=== PATIENT | female | born 1995 | race Caucasian/White ===

== ENCOUNTER 2022-06-21 21:44 | Emergency (ER) | payer OTHER ==
--- OUTSIDE RECORDS SUMMARY | 2022-06-21 21:49 | XMS REPORT | Continuity of Care Document ---
:1995 Author Organization [facility] t Address [address] [place] [address] Dr. Ross [address] [place] [address] Care Team Providers Name Role Phone FRANCESCA FIGUEROA Primary Care Physician Unavailable OTONIEL MILES Attending Clinician Unavailable Otoniel Miles MD Attending Clinician Doctor Unassigned, [place] Attending Clinician Unavailable Jeni Jackson PA-C Attending Clinician JENI JACKSON Attending Clinician Unavailable Bartolo Mota MD Attending Clinician Only, Adc Test Attending Clinician Unavailable YAKOV MCCALL Attending Clinician Unavailable Ultrasound, Sug-Mfm Attending Clinician Unavailable Yakov Mccall MD Attending Clinician 2, Adc Lab Attending Clinician Unavailable FRANCESCA FIGUEROA Attending Clinician Unavailable Ultrasound, Adc Mfm Attending Clinician Unavailable Rg Flynn MD Attending Clinician Francesca Crowell Attending Clinician OTONIEL MILES Admitting Clinician Unavailable Otoniel Miles MD Admitting Clinician Payers Payer Name Policy Type Policy Number Effective Date Expiration Date Lolis CLAY SAVEJOSETTE [id number] 2021 00:00:00 [facility] [id number] 2020 CHOICE MEDICAID 00:00:00 W-[id number] 2020 00:00:00 Problems Condition Condition Condition Status Onset Resolution Last Treating Co mments Source Name Details Category Date Date Treatment Clinician Date Presence Presence Disease Active Unive rs of of 2-03 [place]y of [place] Medical contracept contracept Br anch aiden device aiden device ASCUS of ASCUS of Disease Active Unive rs cervix cervix 9-15 ity of with with 00:00: [place] negative negative 00 Medica l high risk high risk Bran ch HPV HPV 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 5-26 ity of and and 00:00: [place] depressive depressive 00 Me dical disorder disorder Branch Allergies, Adverse Reactions, Alerts Allergy Allergy Status Severity Reaction(s) Onset Inactive Treating Comm ents Source Name Type Date Date Clinician PENICILL Drug Active Rash 2019-0 Univers INS Class 9-15 ity of 00:00: [place] 00 Medical Branch SULFA Drug Active Rash 2019-0 Univers (SULFONA Class 9-15 ity of MIDE 00:00: [place] ANTIBIOT 00 Medical ICS) Branch Penicill Propensi Active Rash 0 Univer s ins ty to 9-15 ity of adverse 00:00: [place] reaction 00 Medical s Branch Sulfa Propensi Active Rash 2019-0 Univers (Sulfona ty to 9-15 ity of mide adverse 00:00: [place] Antibiot reaction 00 Medica l ics) s Branch Social History Social Habit Start Date Stop Date Quantity Comments Source Exposure to Not sure [place] of SARS-CoV-2 [place] [facility] (event) Branch Alcohol intake 2021-08-11 2021-08-11 Ex-drinker University of 00:00:00 00:00:00 (finding) [place] [facility] Tobacco use and 2020-03-23 2020-03-23 Never used Universit y of exposure 00:00:00 00:00:00 [place] [facility] History SDOH 2020-03-23 2020-03-23 2 University o f Alcohol Frequency 00:00:00 00:00:00 [place] [facility] History SDWY 2020-03-23 2020-03-23 1 University o f Alcohol Std 00:00:00 00:00:00 [place] [facility] Drinks Branch History SDWY 2020-03-23 2020-03-23 1 University o f Alcohol Binge 00:00:00 00:00:00 [place] [facility] Alcohol Comment 2020-03-23 2020-03-23 social drinker Unive rsity of 00:00:00 00:00:00 [facility] Sex Assigned At [birth year] Universit y of 00:00:00 00:00:00 [facility] Smoking Status Start Date Stop Date Source Never smoker [facility] Medications Ordered Filled Start Stop Current Ordering Indication Dosage Frequency Signature Comments Components Source Medication Medication Date Date Medication? Clinician (SIG) Name Name No known No Univers medications 3-07 ity of 10:15: [address] No known No Univers medications 3-07 ity of 10:15: [address] miSOPROStoL 2021- No [id number] Take one Univers 200 mcg 07-27 tablet ity of tablet 00:00: 00:00 night [place] 00 :00 before Medical procedure, Branch then take one tablet morning of procedure 2020-07- No [id number] 1{tbl} Take 1 Univers vitamin 08-16 tablet by ity of w/FA tablet 00:00: 00[place] :00 daily. Medical Branch docusate 2020-07- No [id number] 240mg Take 1 Univers calcium 240 08-16 capsule by i ty of mg capsule 00:00: 00:00 mouth once [place] 00 :00 daily as Medical needed for Branch Constipati on. ferrous 2020-07- No [id number] 325mg Take 1 U nivers sulfate 325 08-16 tablet by it y of mg (65 mg 00:00: 00:00 mouth [place] iron) 00 :00 (two) Medical tablet times Branch daily. ibuprofen 2020-07- No [id number] 600mg Take 1 Univers 600 mg 08-16 tablet by ity of tablet 00:00: 00:00 mouth [place] 00 :00 every 6 Medical (six) Branch hours as needed (Pain). Take with food or milk. Immunizations Ordered Filled Immunization Date Status Comments Sour e Immunization Name Name Influenza Virus 2021-04-20 Completed Universit y of Vaccine Quad IM, 00:00:00 [place] [facility] dical Preserv and ABX Branch Free 6 MO-64 YRS Influenza Virus 2021-04-20 Completed Universit y of Vaccine Quad IM, 00:00:00 [place] Me dical Preserv and ABX Branch Free 6 MO-64 YRS Influenza Virus 2021-04-20 Completed Universit y of Vaccine Quad IM, 00:00:00 [facility] dical Preserv and ABX Branch Free 6 MO-64 YRS TDAP 2021-04-06 Completed University of 00:00:00 [place] [facility] TDAP 2021-04-06 Completed University 00:00:00 [place] [facility] [place] TDAP 2021-04-06 Completed University of 00:00:00 [facility] Influenza Virus 2020-03-23 Completed Universit y of Vaccine Quad .5 mL 00:00:00 [place] [facility] IM 6+ MO Branch Influenza Virus 2020-03-23 Completed Universit y of Vaccine Quad .5 mL 00:00:00 [place] [facility] IM 6+ MO Branch Influenza Virus 2020-03-23 Completed Universit y of Vaccine Quad .5 mL 00:00:00 [facility] 6+ MO Branch Vital Signs Vital Name Observation Time Observation Value Comments Source Systolic blood 2021-09-12 15:49:00 111 mm[Hg] Univer sity of pressure [facility] Diastolic blood 2021-09-12 15:49:00 76 mm[Hg] Unive rsity of [facility] Heart rate 2021-09-12 15:49:00 73 /min [facility] Body temperature 2021-09-12 15:49:00 36.83 [facility] Body height 2021-09-12 15:49:00 162.6 cm [facility] Body weight 2021-09-12 15:49:00 69.31 kg [facility] BMI 2021-09-12 15:49:00 26.23 kg/m2 [facility] Procedures Procedure Date / Time Performing Clinician Source Performed AUTHORIZATION FOR 2021-09-05 06:01:00 Doctor Unassigned, No Univ [facility] DRAWING HAND CLINIC ULTRASOUND 2021-07-27 06:01:00 Doctor Unassigned, No [facility] Encounters Start End Encounter Admission Attending Care Care Encounter Source Date/Time Date/Time Type Type Clinicians Facility Department ID 2022-01-24 2022-01-24 Outpatient OTONIEL AREVALO [facility] [id number] [facility] 15:00:00 15:00:00 ity [facility] 2021-09-12 2021-09-12 Outpatient R OTONIEL MILES [facility] [id number] Univers 09:30:00 10:09:34 ity [facility] 2021-09-12 2021-09-12 Office Ginger [facility] [id number] Univers 09:30:00 10:09:34 Visit Rory [place] 350.1.13.10 i ty of [place] [phone] Ks dical [address] 2021-09-12 2021-09-12 Outpatient R GINGER OTONIEL [facility] [id number] Univers 09:30:00 10:09:34 ity [facility] 2021-09-05 2021-09-05 Orders Doctor BENJAMÍN 1.2.840.114 [id number] Univers 00:00:00 00:00:00 Only Unassigned, SHAWN 350.1.13.10 ity of [place] [facility] 4.2.7.2.686 Nav as [phone] [address] 2021-08-11 2021-08-11 Outpatient R GINGER OTONIEL [facility] [id number] Univers 15:00:00 16:05:48 ity of [facility] 2021-08-11 2021-08-11 Office Ginger [facility] [id number] Univers 15:00:00 16:05:48 Visit Rroy [place] 350.1.13.10 i ty of [place] 4[place]2.7.2.[place] [phone] Ks dic[address] 2021-08-11 2021-08-11 Outpatient R GINGER [facility] [id number] Univers 15:00:00 16:05:48 ity [facility] 2021-08-11 2021-08-11 Orders Doctor BENJAMÍN 1.2.840.114 [id number] Univers 00:00:00 00:00:00 Only Unassigned, SHAWN 350.1.13.10 [facility] 4.2.7.2.686 Nav as [phone] [address] 2021-07-27 2021-07-27 [facility] 1.2.237.909 [id number] Univers 16:30:00 17:03:12 Jeni [place] 350.1.13.10 ity of Visit [place] 4[place]2.7.2.686 [place] [phone] [place] dical [address] 2021-07-27 2021-07-27 [facility] [id number] Univers 16:30:00 17:03:12 JENI ity [facility] 2021-07-27 2021-07-27 Orders Doctor BUTTS 1.2.840.114 [id number] Univers 00:00:00 00:00:00 Only Unassigned, SHAWN 350.1.13.10 ity of [place] [facility] 4.2.7.2.686 Nav as [phone] [address] 2021-07-21 2021-07-21 [facility] [id number] Univers 11:30:00 11:30:00 JENI [facility] 2021-06-14 2021-06-15 Inpatient P GINGER OTONIEL [facility] RANDEE [id number] Univers 04:19:00 16:30:00 ity of [facility] 2021-06-14 2021-06-15 [facility] Otoniel Miles [facility] 1.2.840.114 [id number] Univers 04:19:00 16:30:00 Encounter Rory [place] 350.1.13.10 ity [place] [phone] [address] 2021-06-14 2021-06-14 [facility] 1.2.840.114 [id number] Univers 08:45:00 13:44:00 Event Bartolo [place] 350.1.13.10 i ty [place].2.[place] [id number] [address] 2021-06-14 2021-06-14 Orders Doctor BUTTS 1.2.840.114 [id number] Univers 00:00:00 00:00:00 Only Unassigned, SHAWN 350.1.13.10 ity of [place] [facility] 4.2.7.2.686 Nav as [id number] [facility] 00[address] [place] 2021-06-13 2021-06-13 Laboratory Only, Adc Test [facility] 1.2.840. 114 [id number] Univers 10:12:23 10:27:23 Only Otoniel Miles 350.1.13.10 ity of [place] 4.2.7.2.[place] [phone] [facility] 353 [place] 2021-06-13 2021-06-13 Routine Renetta [facility] 1.2.046.835 [id number] Univers 09:07:06 09:51:34 Jeni [place] 350.1.13.10 ity of Visit [place] 4[place]7.2.[place] [phone] Ks dic[address] 2021-06-13 2021-06-13 Outpatient R RENETTA [facility] [id number] Univers 09:00:00 09:51:34 JENI ity of [facility] 2021-06-13 2021-06-13 Orders Doctor BENJAMÍN 1.2.840.114 [id number] Univers 00:00:00 00:00:00 Only Unassigned, SHAWN 350.1.13.10 ity of [place] [facility] 4.2.7.2.686 Nav as [id number] [address] 2021-06-09 2021-06-09 Telephone Otoniel Miles [facility] 1.2.840.114 [id number] Univers 00:00:00 00:00:00 Rory [place] 350.1.13.10 i ty of [place] 4.[place].7.2.[place] [phone] Ks dical NAL [address] [place] [address] 2021-06-07 2021-06-07 Outpatient R OTONIEL MILES [facility] [id number] Univers 16:00:00 16:41:43 ity of [facility] 2021-06-07 2021-06-07 Routine Otoniel Miles [facility] 1.2.463.376 [id number] Univers 15:36:25 16:41:43 Rory [place] 350.1.13.10 ity of Visit [place] 4[place].2.[place] [phone] [place] dical NAL 134 [facility] 2021-06-01 2021-06-01 Outpatient P STEFANY [facility] [id number] Univers 11:00:00 10:54:15 YAKOV [facility] 2021-06-01 2021-06-01 Outpatient P STEFANY [facility] [id number] Univers 11:00:00 10:54:15 [facility] 2021-06-01 2021-06-01 Industrial Waste Treatment Technician Ultrasound, [facility] 1.2 .840.114 [id number] Univers 10:41:32 10:54:15 Visit Yakov Mccall DRAWING HAND 350.1.13.10 ity of [facility] 4.2.7.2.686 Nav as MATERNAL [phone] [facility] ical & CHILD [address] [place] [address] 2021-05-31 2021-05-31 Industrial Waste Treatment Technician 2, Adc Lab [facility] 1.2.840.114 [id number] Univers 09:10:22 09:24:01 Visit Jeni Jackson 350.1.13.10 ity of [place].2.[place] [phone] [place] dical NAL 353 [facility] 2021-05-31 2021-05-31 Outpatient R RENETTA [facility] [id number] Univers 08:15:00 08:59:03 JENI barajas [facility] 2021-05-31 2021-05-31 Routine Renetta [facility] 1.2.097.369 [id number] Univers 08:07:14 08:59:03 Jeni [place] 350.1.13.10 ity of Visit [place] 4[place]2.7.2.[place] [phone] [place] dical NAL 134 [facility] 2021-05-31 2021-05-31 Telephone Renetta [place] 1.2.840.114 [id number] Univers 00:00:00 00:00:00 Jeni JEM 350.1.13.10 i ty of [place] 4.2.7.2.[place] [phone] [place] dical NAL 134 [facility] 2021-05-25 2021-05-25 Outpatient R MILESOTONIEL [facility] [id number] Univers 16:00:00 16:57:57 ity of [facility] 2021-05-25 2021-05-25 Routine Otoniel Miles [facility] 1.2.866.620 [id number] Univers 15:33:48 16:57:57 Rory [place] 350.1.13.10 ity of Visit [place] 4.2.7.2.[place] [phone] [place] dical NAL 134 [facility] 2021-05-18 2021-05-18 Industrial Waste Treatment Technician 2, Adc Lab [facility] 1.2.840.114 [id number] Univers 15:27:33 15:42:33 Visit Jeni Jackson 350.1.13.10 ity [facility] 4.2.7.2.[place] [phone] [facility] 353 [facility] 2021-05-18 2021-05-18 Outpatient R RENETTA [facility] [id number] Univers 15:30:00 15:30:00 JENI [facility]kryst[facility] 2021-05-18 2021-05-18 [facility] 1.2.451.201 [id number] Univers 14:25:44 15:25:46 Jeni [place] 350.1.13.10 ity of [place] 4.2.7.2.[place] [phone] [place] dical NAL 134 [facility] 2021-05-18 2021-05-18 Orders Doctor BENJAMÍN 1.2.840.[id number] [place] [address] 00:00:00 00:00:00 Only Unassigned, SHAWN 350.1.13.10 ity of [place] [facility] 4.2.7.2.686 Nav as [phone] [address] 2021-05-13 2021-05-13 [facility] 1.2.840.114 [id number] Univers 00:00:00 00:00:00 Cam [place] 350.1.13.10 i ty [facility] 4.2.7.2.[place] [phone] Ks dical [address] 2021-05-04 2021-05-04 [facility] 1.2.091.224 [id number] Univers 16:18:28 17:07:36 Cam [place] 350.1.13.10 ity of Visit [place] 4.2.7.2.686 [place] [phone] [address] 2021-05-04 2021-05-04 Outpatient R GINGER OTONIEL [facility] [id number] Univers 16:15:00 16:15:00 ity [facility] 2021-04-20 2021-04-20 Outpatient R RENETTA [facility] [id number] Univers 16:00:00 16:00:00 JENI ity of [facility] 2021-04-20 2021-04-20 Routine Renetta [facility] 1.2.862.252 [id number] Univers 15:23:12 15:38:12 Jeni [place] 350.1.13.10 ity of Visit [place] 4[place]2.7.2.[place] Profess[place] [phone] Ks dic[address] 2021-04-06 2021-04-06 Routine Miles [facility] 1.2.419.831 [id number] Univers 16:04:43 16:43:11 Cam [place] 350.1.13.10 ity of Visit [place] 4.2.7.2.686 [place] Profess[place] [phone] Ks dic[address] 2021-04-06 2021-04-06 Outpatient R MILES OTONIEL [facility] [id number] Univers 16:00:00 16:00:00 ity of [facility] 2021-04-06 2021-04-06 Industrial Waste Treatment Technician 2, Adc Lab [facility] 1.2.840.114 [id number] Univers 08:05:32 08:20:32 Visit Otoniel Miles [place] 350.1.13.10 ity of [place] 4.2.7.2.[place] [phone] [address] 2021-03-23 2021-03-23 Outpatient R HENRY [facility] [id number] Univers 16:00:00 16:00:00 FRANCESCA barajas [facility] 2021-03-23 2021-03-23 Industrial Waste Treatment Technician 2, Adc Lab [facility] 1.2.840.114 [id number] Univers 11:02:04 11:17:04 Visit Jeni Jackson 350.1.13.10 ity of [place] 4.2.7.2.686 [place] [phone] [address] 2021-03-23 2021-03-23 Routine Renetta [facility] 1.2.137.728 [id number] Univers 09:47:12 10:02:12 Jeni [place] 350.1.13.10 ity of [place] 4.2.7.2.686 [place] [id number] [address] 2021-03-23 2021-03-23 Outpatient R RENETTA [facility] [id number] Univers 10:00:00 10:00:00 JENI barajas [facility] 2021-03-23 2021-03-23 Case Renetta [facility] 1.2.327.621 [id number] Univers 00:00:00 00:00:00 Management Jeni [place] 350.1.13.10 ity of [place] 4[place]2.7.2.686 [place] [phone] [address] 2021-03-11 2021-03-11 Industrial Waste Treatment Technician Ultrasound, Adc [facility] 1.2 .840.114 [id number] Univers 08:31:56 09:16:56 Visit Rg Flynn 350.1.13. 10 ity of [place] 4.2.7.2.686 [place] [phone] Ks dical [address] 2021-03-11 2021-03-11 Industrial Waste Treatment Technician Ultrasound, Adc [facility] 1.2 .840.114 [id number] Univers 08:31:56 09:16:56 Visit Rg [place] 350.1.13. 10 ity of [place] 4.2.7.2.[place] [phone] [address] 2021-03-11 2021-03-11 Outpatient R [facility] [id number] Univers 08:30:00 08:30:00 ity of [facility] 2021-02-23 2021-02-23 Routine Otoniel Miles [facility] 1.2.464.543 [id number] Univers 14:05:40 15:54:33 Cam [place] 350.1.13.10 ity of Visit [place] 4.2.7.2.686 [place] [phone] [address] 2021-02-23 2021-02-23 Outpatient R OTONIEL MILES [facility] [id number] Univers 14:15:00 14:15:00 ity of [facility] 2021-02-23 2021-02-23 Orders Doctor BENJAMÍN 1.2.840.114 [id number] Univers 00:00:00 00:00:00 Only Unassigned, SHAWN 350.1.13.10 ity of [place] [facility] 4.2.7.2.686 Nav as [phone] [address] 2021-01-28 2021-01-28 Telephone Otoniel Miles NJDIANDRA 1.2.840.114 [id number] Univers 00:00:00 00:00:00 Cam [place] 350.1.13.10 i ty of [place] 4.2.7.2.686 [place] [phone] [place]s dic[address] 2021-01-27 2021-01-27 Industrial Waste Treatment Technician Ultrasound, Adc [facility] 1.2 .840.114 [id number] Univers 09:40:59 10:40:59 Visit Rg [place] 350.1.13. 10 ity of [place] 4.2.7.2.686 [place] [phone] Ks dical nal 134 [facility] 2021-01-27 2021-01-27 Outpatient P [facility] [id number] Univers 10:00:00 10:00:00 ity of [facility] 2021-01-26 2021-01-26 Routine Renetta [facility] 1.2.540.588 [id number] Univers 08:36:06 09:20:37 Jeni [place] 350.1.13.10 ity of Visit [place] 4.2.7.2.[place] [phone] [place] dical nal 134 [facility] 2021-01-26 2021-01-26 Outpatient R RENETTA [facility] [id number] Univers 09:00:00 09:00:00 JENI ity [facility] 2020-12-30 2020-12-30 Outpatient R [facility] [id number] Univers 13:00:00 13:00:00 ity of [facility] 2020-12-29 2020-12-29 Outpatient R [facility] [id number] Univers 16:00:00 16:00:00 ity [facility] 2020-12-29 2020-12-29 Industrial Waste Treatment Technician 2, Adc Lab [facility] 1.2.840.114 [id number] Univers 15:29:13 15:44:13 Visit Otoniel Miles 350.1.13.10 ity of [place] 4[place]2.7.2.[place] [phone] [place] dical nal 353 [facility] 2020-12-29 2020-12-29 Routine Otoniel Miles [facility] 1.2.534.886 [id number] Univers 14:52:11 15:25:45 Rory [place] 350.1.13.10 ity of Visit [place] 4.2.7.2.686 [place] [phone] [place] dical nal 134 [facility] 2020-12-22 2020-12-22 Telephone Otoniel Miles [facility] 1.2.840.114 [id number] Univers 00:00:00 00:00:00 Cam [place] 350.1.13.10 i ty of [place] 4.2.7.2.686 [place] [phone] [address] 2020-12-11 2020-12-11 Orders Doctor BENJAMÍN 1.2.840.114 [id number] Univers 00:00:00 00:00:00 Only Unassigned, SHAWN 350.1.13.10 ity of [place] [facility] 4.2.7.2.686 Nav as [phone] [address] 2020-12-02 2020-12-02 Routine Otoniel Miles [facility] 1.2.628.524 [id number] Univers 10:33:32 11:31:14 Cam [place] 350.1.13.10 ity of Visit [place] 4.2.7.2.[place] [phone] [address] 2020-12-02 2020-12-02 Outpatient R OTONIEL MILES NJDIANDRA [facility] [id number] Univers 10:45:00 10:45:00 ity of [facility] 2020-12-01 2020-12-01 Telephone Otoniel Miles NJDIANDRA 1.2.840.114 [id number] Univers 00:00:00 00:00:00 Cam [place] 350.1.13.10 i ty of [place] 4.2.7.2.[place] [phone] [address] 2020-11-24 2020-11-24 Telephone Otoniel Miles [facility] 1.2.840.114 [id number] Univers 00:00:00 00:00:00 Cam [place] 350.1.13.10 i ty of [place] 4.2.7.2.686 [place] [phone] [address] 2020-11-23 2020-11-23 Orders Doctor BENJAMÍN 1.2.840.114 [id number] Univers 00:00:00 00:00:00 Only Unassigned, SHAWN 350.1.13.10 ity of [place] [facility] 4.2.7.2.686 Nav as [phone] [address] 2020-11-18 2020-11-18 Industrial Waste Treatment Technician 2, Adc Lab [facility] 1.2.840.114 [id number] Univers 09:12:41 09:27:41 Visit MilesShivanivickey [place] 350.1.13.10 ity of [place] 4.2.7.2.[place] [phone] [place]s dical nal 353 [facility] 2020-11-18 2020-11-18 Outpatient R OTONIEL MILES [facility] [id number] Univers 09:00:00 09:00:00 ity of [facility] 2020-11-04 2020-11-04 Industrial Waste Treatment Technician 2, [facility] 1.2.840.114 [id number] Univers 13:11:38 13:26:38 Visit Otoniel Miles 350.1.13.10 ity of [place] 4[place]2.7.2.686 [place] [phone] Ks dic[address] 2020-11-04 2020-11-04 [facility] 1.2.345.652 [id number] Univers 10:58:49 12:35:53 Rory [place] 350.1.13.10 ity of Visit [place] 4.2.7.2.686 [place] [phone] [place] dical nal [address] [place] [address] 2020-11-04 2020-11-04 Outpatient R OTONIEL MILES [facility] [id number] Univers 11:00:00 11:00:00 ity of [facility] 2020-11-04 2020-11-04 Letter Otoniel Miles [facility] 1.2.191.061 [id number] Univers 00:00:00 00:00:00 (Out) Rory [place] 350.1.13.10 i ty of [place] 4.2.7.2.686 [place] [phone] [place]s dical nal 134 [facility] 2020-10-29 2020-10-29 Orders Doctor BUTTS 1.2.840.114 [id number] Univers 00:00:00 00:00:00 Only Unassigned, SHAWN 350.1.13.10 ity of [place] [facility] 4.2.7.2.686 Nav as [phone] [address] 2020-10-21 2020-10-21 Initial Otoniel Miles [facility] [id number] Univers 08:57:42 10:31:58 [place] [id number] ity of [place] [id number] [phone] [address] 2020-10-21 2020-10-21 Outpatient R OTONIEL MILES [facility] [id number] Univers 09:00:00 09:00:00 ity of [facility] 2020-10-21 2020-10-21 Case Renetta [facility] 1.2.230.104 [id number] Univers 00:00:00 00:00:00 Management Jeni Parish [id number] [id number] [phone] [address] 2020-10-21 2020-10-21 Orders Doctor BENJAMÍN [id number] Univers 00:00:00 00:00:00 Only Unassigned, SHAWN [id number] ity of [place] [facility] [id number] Nav as [phone] [address] 2020-10-20 2020-10-20 Telephone MilesOtoniel [facility] [id number] Univers 00:00:00 00:00:00 Rory Parish [id number] [id number] [phone] [address] 2020-06-25 2020-06-25 Orders Doctor BENJAMÍN [id number] Univers 00:00:00 00:00:00 Only Unassigned, SHAWN [id number] ity of [place] [facility] [id number] Nav as [phone] [address] 2020-03-23 2020-03-23 Office Henry [facility] [id number] Univers 13:22:45 14:45:18 Visit Francesca Osborne DRAWING HAND [id number] [facility] [id number] Nav as MATERNAL [phone] Med ical & CHILD [address] [place] [address] 2020-03-23 2020-03-23 Outpatient R [facility] [id number] Univers 13:45:00 13:45:00 FRANCESCA barajas of [facility] Results This patient has no known results.
[2022-06-21] MEDS ORDERED: ONDANSETRON 4 MG/2 ML VIAL ONE (22:42)
[2022-06-21] MEDS ORDERED: FAMOTIDINE 20 MG/2 ML VIAL IV ONE (22:43)
[2022-06-21 22:48] LABS: Urine Blood Trace-intact (Negative); Urine Glucose Negative (Negative); Urine Protein Trace (Negative); Urine Specific Gravity 1.025 (1.005-1.030)
[2022-06-21 23:02] LABS: Urine Specific Gravity/Preg 1.025 (1.005-1.030)
[2022-06-21 23:08] LABS: Absolute Lymphocytes (CBC) 2.1 K/uL (0.7-4.9); Lymphocytes % 35.8 % (15.3-44.8); MCV 88.4 fL (80-100); MPV 8.4 fL (7.6-11.3); RBC Red Blood Cell Count 4.76 M/uL (3.86-4.86)
[2022-06-21 23:29] LABS: Albumin 3.7 g/dL (3.4-5.0); Bilirubin Total 0.3 mg/dL (0.2-1.0); Potassium 3.6 mmol/L (3.5-5.1); Protein, Total 6.8 g/dL (6.4-8.2)
--- NOTE | 2022-06-22 01:15 | EDPHYS ---
Physician Documentation [facility] Name: Allison Hummel Age: 27 yrs Sex: Female : 1995 Arrival Date: 06/21/2022 Time: 21:55 Bed 15 Private MD: ED Physician Behzad Henderson HPI: 06/22 01:11 This 27 yrs old Female presents to ER via Ambulatory with complaints of Abdominal kdr Cramping, Nausea/Vomiting. 01:11 The patient states that for the past 2 weeks she has had intermittent sharp stabbing kdr pains. For the last few days has become particularly worse. Her pain is essentially her in her upper abdomen but occasionally also lower. He is also had a random vomiting over the past couple of weeks and occasional diarrhea as well as. She has not had any diarrhea today. She took several tests which were reported to be negative.. Onset: The symptoms/episode began/occurred gradually, 2 week(s) ago. Severity of symptoms: At their worst the symptoms were mild moderate severe in the emergency department the symptoms have improved markedly. The patient has not experienced similar symptoms in the past. The patient has not recently seen a physician. Historical: - Allergies: 06/21 22:24 PENICILLINS; jb4 22:24 Sulfa (Sulfonamide Antibiotics); jb4 - PMHx: 22:24 None; jb4 - PSHx: 22:24 None; jb4 - Immunization history:: Adult Immunizations up to date, Client reports having NOT received the Covid vaccine. - Social history:: Smoking status: Patient denies any tobacco usage or history of. Patient/guardian denies using alcohol, street drugs. ROS: 06/22 01:11 Constitutional: Negative for fever, chills, and weight loss, Eyes: Negative for injury, kdr pain, redness, and discharge, ENT: Negative for injury, pain, and discharge, Neck: Negative for injury, pain, and swelling, Cardiovascular: Negative for chest pain, palpitations, and edema, Respiratory: Negative for shortness of breath, cough, wheezing, and pleuritic chest pain, Back: Negative for injury and pain, : Negative for injury, bleeding, discharge, and swelling, MS/Extremity: Negative for injury and deformity, Skin: Negative for injury, rash, and discoloration, Neuro: Negative for headache, weakness, numbness, tingling, and seizure activity. Psych: Negative for depression, anxiety, suicide ideation, homicidal ideation, and hallucinations, Allergy/Immunology: Negative for hives, rash, and allergies, Endocrine: Negative for neck swelling, polydipsia, polyuria, polyphagia, and marked weight changes, Hematologic/Lymphatic: Negative for swollen nodes, abnormal bleeding, and unusual bruising. Abdomen/GI: Positive for abdominal pain, nausea and vomiting, nausea, vomiting, and diarrhea, Negative for constipation, abdominal cramps, abdominal distension, anorexia, dysphagia, hematemesis, black/tarry stool, rectal pain, rectal bleeding, bowel incontinence. Exam: 01:11 Constitutional: This is a well developed, well nourished patient who is awake, alert, kdr and in no acute distress. Head/Face: Normocephalic, atraumatic. Eyes: Pupils equal round and reactive to light, extra-ocular motions intact. Lids and lashes normal. Conjunctiva and sclera are non-icteric and not injected. Cornea within normal limits. Periorbital areas with no swelling, redness, or edema. Neck: Trachea midline, no thyromegaly or masses palpated, and no cervical lymphadenopathy. Supple, full range of motion without nuchal rigidity, or vertebral point tenderness. No Meningismus. Chest/axilla: Normal chest wall appearance and motion. Nontender with no deformity. No lesions are appreciated. Cardiovascular: Regular rate and rhythm with a normal S1 and S2. No gallops, murmurs, or rubs. Normal PMI, no JVD. No pulse deficits. Respiratory: Lungs have equal breath sounds bilaterally, clear to auscultation and percussion. No rales, rhonchi or wheezes noted. No increased work of breathing, no retractions or nasal flaring. Back: No spinal tenderness. No costovertebral tenderness. Full range of motion. Skin: Warm, dry with normal turgor. Normal color with no rashes, no lesions, and no evidence of cellulitis. MS/ Extremity: Pulses equal, no cyanosis. Neurovascular intact. Full, normal range of motion. Neuro: Awake and alert, GCS 15, oriented to person, place, time, and situation. Cranial nerves II-XII grossly intact. Motor strength 5/5 in all extremities. Sensory grossly intact. Cerebellar exam normal. Normal gait. Psych: Awake, alert, with orientation to person, place and time. Behavior, mood, and affect are within normal limits. 01:11 Abdomen/GI: Inspection: abdomen appears normal, obese Bowel sounds: normal, Palpation: soft, nontender, in all quadrants, Rectal exam: the exam is deferred. Vital Signs: 06/21 22:21 BP 116 / 77; Pulse 78; Resp 16; Temp 98.6(O); Pulse Ox 98% on R/A; Weight 76.2 kg (R); jb4 Height 5 ft. 4 in. (162.56 cm) (R); Pain 7/10; 12 00:00 BP 109 / 78; Pulse 103; Resp 16; Pulse Ox 97% on R/A; jb4 01:15 BP 98 / 66; Pulse 89; Resp 16; Pulse Ox 97% on R/A; jb4 06/21 22:21 Body Mass Index 28.84 (76.20 kg, 162.56 cm) jb4 MDM: 01:11 Data reviewed: vital signs, nurses notes, lab test result(s), radiologic studies. kdr Counseling: I had a detailed discussion with the patient and/or guardian regarding: the historical points, exam findings, and any diagnostic results supporting the discharge/admit diagnosis, lab results, radiology results, the need for outpatient follow up. 01:14 Patient medically screened. kdr 06/21 22:33 Order name: CBC with Diff; Complete Time: 23:50 kdr 06/21 22:33 Order name: CMP; Complete Time: 23:50 kdr 06/21 22:33 Order name: Lipase; Complete Time: 23:51 kdr 06/21 22:33 Order name: CT Abd/Pelvis - IV Contrast Only kdr 06/21 22:48 Order name: Urine Dipstick-Ancillary; Complete Time: 23:50 EDMS 06/21 22:51 Order name: Urine --Ancillary (enter results); Complete Time: 23:51 oe 06/21 22:33 Order name: IV Saline Lock; Complete Time: 22:33 kdr 06/21 22:33 Order name: Labs collected and sent; Complete Time: 22:33 kdr 06/21 22:33 Order name: Urine Dipstick-Ancillary (obtain specimen); Complete Time: 23:13 kdr 06/21 22:33 Order name: Urine Test (obtain specimen); Complete Time: 23:13 kdr Administered Medications: 06/21 23:19 Drug: Pepcid (famotidine) 20 mg Route: IVP; Site: right antecubital; jb4 23:45 Follow up: Response: No adverse reaction jb4 23:19 Not Given (Patient Refused): Zofran (Ondansetron) 4 mg IVP once; over 2 minutes jb4 Disposition Summary: 06/22/22 01:14 Discharge Ordered Location: Home kdr Problem: new kdr Symptoms: have improved kdr Condition: Stable kdr Diagnosis - Abdominal pain, Generalized kdr - Nausea with vomiting, unspecified kdr Followup: kdr - With: Private Physician - When: 2 - 3 days - Reason: If symptoms return, Further diagnostic work-up, Recheck today's complaints, Continuance of care, Re-evaluation by your physician Discharge Instructions: - Discharge Summary Sheet kdr - Nausea and Vomiting, Adult kdr - Abdominal Pain, Adult, [id number] kdr - Diarrhea, Adult, [id number] kdr Forms: - Medication Reconciliation Form kdr - Thank You Letter kdr Prescriptions: - Zofran 4 mg Oral Tablet - take 1 tablet by ORAL route every 12 hours As needed; 6 tablet; Refills: 0, kdr Product Selection Permitted - Pepcid 20 mg Oral Tablet - take 1 tablet by ORAL route once daily; 20 tablet; Refills: 0, Product kdr Selection Permitted - dicyclomine 20 mg Oral Tablet - take 1 tablet by ORAL route 3 times per day; 10 tablet; Refills: 0, Product kdr Selection Permitted Signatures: Dispatcher [employer] EDCA Behzad Henderson MD MD kdr Bennie Davalos, RN RN jb4 Corrections: (The following items were deleted from the chart) 22:25 22:24 Home Meds: None; jb4 jb4
--- NOTE | 2022-06-22 01:15 | ER ---
Nurse's Notes [facility] Name: Allison Hummel Age: 27 yrs Sex: Female : 1995 Arrival Date: 06/21/2022 Time: 21:55 Bed 15 Private MD: Diagnosis: Abdominal pain, Generalized;Nausea with vomiting, unspecified Presentation: 06/21 22:21 Chief complaint: Patient states: For the past week I have been having sharp stomach jb4 pains. They are sometimes in my upper stomach and sometimes lower. I would vomit at random and I had a couple episodes of diarrhea but none today. I just wanted to get checked out. I took 2 test and both were negative. Coronavirus screen: At this time, the client does not indicate any symptoms associated with coronavirus-19. Ebola Screen: No symptoms or risks identified at this time. Initial Sepsis Screen: Does the patient meet any 2 criteria? No. Patient's initial sepsis screen is negative. Does the patient have a suspected source of infection? No. Patient's initial sepsis screen is negative. Risk Assessment: Do you want to hurt yourself or someone else? Patient reports no desire to harm self or others. Onset of symptoms was June 14, 2022. Transition of care: patient was not received from another setting of care. 22:21 Method Of Arrival: Ambulatory jb4 22:21 Acuity: CARLOS 3 jb4 Historical: - Allergies: 22:24 PENICILLINS; jb4 22:24 Sulfa (Sulfonamide Antibiotics); jb4 - PMHx: 22:24 None; jb4 - PSHx: 22:24 None; jb4 - Immunization history:: Adult Immunizations up to date, Client reports having NOT received the Covid vaccine. - Social history:: Smoking status: Patient denies any tobacco usage or history of. Patient/guardian denies using alcohol, street drugs. Screenin:25 [facility] ED Fall Risk Assessment (Adult) History of falling in the last 3 months, jb4 including since admission No falls in past 3 months (0 pts) Confusion or Disorientation No (0 pts) Intoxicated or Sedated No (0 pts) Impaired Gait No (0 pts) Mobility Assist Device Used No (0 pt) Altered Elimination No (0 pt) Score/Fall Risk Level 0 - 2 = Low Risk. Abuse screen: Denies threats or abuse. Nutritional screening: No deficits noted. Tuberculosis screening: No symptoms or risk factors identified. Fall Risk No fall in past 12 months (0 pts). No secondary diagnosis (0 pts). No IV (0 pts). Ambulatory Aid- None/Bed Rest/Nurse Assist (0 pts). Gait- Normal/Bed Rest/Wheelchair (0 pts) Mental Status- Oriented to own ability (0 pts). Total Dave Fall Scale indicates No Risk (0-24 pts). Assessment: 22:30 General: Appears in no apparent distress. comfortable, Behavior is calm, cooperative, jb4 appropriate for age. Pain: Complains of pain in abdomen Pain does not radiate. Pain currently is 7 out of 10 on a pain scale. Neuro: Level of Consciousness is awake, alert, obeys commands, Oriented to person, place, time, situation. Cardiovascular: Patient's skin is warm and dry. Respiratory: Airway is patent Respiratory effort is even, unlabored, Respiratory pattern is regular, symmetrical. GI: Abdomen is flat, non-distended. : No signs and/or symptoms were reported regarding the genitourinary system. EENT: No signs and/or symptoms were reported regarding the EENT system. Derm: Skin is intact, Skin is pink, warm \T\ dry. Musculoskeletal: Circulation, motion, and sensation intact. Range of motion: intact in all extremities. 06/22 00:00 Reassessment: Patient appears in no apparent distress at this time. Patient and/or jb4 family updated on plan of care and expected duration. Pain level reassessed. Patient is alert, oriented x 3, equal unlabored respirations, skin warm/dry/pink. 01:14 Reassessment: Patient appears in no apparent distress at this time. Patient and/or jb4 family updated on plan of care and expected duration. Pain level reassessed. Patient is alert, oriented x 3, equal unlabored respirations, skin warm/dry/pink. Vital Signs: 06/21 22:21 BP 116 / 77; Pulse 78; Resp 16; Temp 98.6(O); Pulse Ox 98% on R/A; Weight 76.2 kg (R); jb4 Height 5 ft. 4 in. (162.56 cm) (R); Pain 7/10; 06/22 00:00 BP 109 / 78; Pulse 103; Resp 16; Pulse Ox 97% on R/A; jb4 01:15 BP 98 / 66; Pulse 89; Resp 16; Pulse Ox 97% on R/A; jb4 06/21 22:21 Body Mass Index 28.84 (76.20 kg, 162.56 cm) jb4 ED Course: 06/21 21:55 Patient arrived in ED. jj6 21:56 Behzad Henderson MD is Attending Physician. kdr 22:21 Bennie Davalos, RN is Primary Nurse. jb4 22:24 Triage completed. jb4 22:24 Arm band placed on right wrist. jb4 22:25 Patient has correct armband on for positive identification. Placed in gown. Bed in low jb4 position. Call light in reach. Side rails up X 1. Client placed on continuous cardiac and pulse oximetry monitoring. NIBP monitoring applied. 23:55 CT Abd/Pelvis - IV Contrast Only In Process Unspecified. EDID 06/22 01:35 No provider procedures requiring assistance completed. IV discontinued, intact, jb4 bleeding controlled, No redness/swelling at site. Pressure dressing applied. Administered Medications: 06/21 23:19 Drug: Pepcid (famotidine) 20 mg Route: IVP; Site: right antecubital; jb4 23:45 Follow up: Response: No adverse reaction jb4 23:19 Not Given (Patient Refused): Zofran (Ondansetron) 4 mg IVP once; over 2 minutes jb4 Medication: 06/22 01:35 VIS not applicable for this client. jb4 Outcome: 01:14 Discharge ordered by . kdr 01:35 Patient left the ED. jb4 01:35 Discharged to home ambulatory. jb4 01:35 Condition: stable 01:35 Discharge instructions given to patient, Instructed on discharge instructions, follow up and referral plans. medication usage, Demonstrated understanding of instructions, follow-up care, medications, Prescriptions given X 3. Signatures: Dispatcher [employer] EDID Behzad Henderson MD MD kdr Bennie Davalos, RN RN jb4 Urszula Vu jj6 Corrections: (The following items were deleted from the chart) 06/21 22:25 22:24 Home Meds: None; jb4 jb4
[2022-06-22 01:46] VITALS: TEMP 98.6
[2022-06-22 01:47] VITALS: O2SAT 97
[2022-06-22 01:49] VITALS: BP 98/66
--- NOTE | 2022-06-22 12:23 | RAD REPORT ---
EXAM DESCRIPTION: CT - Abdomen Pelvis W Contrast - 06/22/2022 6:33 am CLINICAL HISTORY: Abdominal pain, acute, nonlocalized COMPARISON: None. TECHNIQUE: Abdomen/pelvis axial images acquired with mL Isovue 370 IV contrast. Coronal and sagitt al reformats created. Exam performed according to departmental dose-optimization program which includ es automated exposure control, adjustment of mA and/or kV according to patient size, and/or use of it erative reconstruction technique. FINDINGS: No free air or significant free fluid. Moderate, diffuse, fatty infiltration of liver. Small hypodense round right renal midlevel lesion measuring 6 x 6 mm. Gallbladder, spleen, pancreas, adrenals, left kidney, adnexa, and urinary bladder unremarkable. IUD in place. Anteverted uterus. Nonopacified stomach, small bowel, appendix, and large bowel appear grossly unremarkable. Portions of large bowel difficult to accurately evaluate due to lack of distention. Abdominal aorta unremarkable. Multiple, nonenlarged, shotty, mesenteric, lymph nodes. Bones unremarkable. IMPRESSION: 1. Moderate, diffuse, fatty infiltration of liver. 2. Small hypodense round right kidney lesion is too small to fully characterize by CT size criteria b ut statistically likely represents cyst. 3. IUD. 4. Multiple, nonenlarged, shotty, mesenteric, lymph nodes. These may be reactive or inflammatory. Electronically signed by: Lamonte Calderón MD 06/22/2022 12:27 AM OUTSOLE MOLDER Due to temporary technical issues with the PACS/Fluency reporting system, reports are being signed by the in house radiologists without review as a courtesy to insure prompt reporting. The interpreting radiologist is fully responsible for the content of the report.
== END 2022-06-22 01:35 | disposition home or self-care (01) ==
LOC: ER 21:44
DX: R10.84 Generalized abdominal pain (principal); R11.2 Nausea with vomiting, unspecified; Z88.0 Allergy status to penicillin; Z88.2 Allergy status to sulfonamides
CPT/HCPCS: 85025; 36415; 81025; 81003; 83690; 80053; 74177; 96374; 99283; Q9967; J2405